=== PATIENT | male | born 1980 | race Caucasian/White ===

== ENCOUNTER 2017-09-27 12:13 | Emergency (ER) | payer OTHER ==
[2017-09-27 12:19] VITALS: RESP 20; O2SAT 100
--- NOTE | 2017-09-27 12:55 | C.PDOC ---
History Of Present Illness 36 y/o male who presents this afternoon complaining of anxiety, palpitations, and chest tightness for three days that have resolved at this time. Patient denies leg pain, swelling, recent travel, shortness of breath, trouble completing routine exercise, or other complaint during the episode. He reports a history of palpitations and anxiety intermittently in the past, however the chest tightness is new for him. Patient has had multiple workups in the past for his complains that include EKG, "blood tests" however he has been advised that these were normal and his maximum heart rate has been 120. He reports one caffeinated beverage per day, and denies other caffeine or stimulant use. Time Seen by Provider: 09/27/17 12:23 Chief Complaint (Nursing): Palpitations History Per: Patient History/Exam Limitations: no limitations Onset/Duration Of Symptoms: Days (3) Current Symptoms Are (Timing): Gone Associated Symptoms: denies: Chest Pain, Dyspnea, Dizziness, Blurred Vision, Focal Weakness, Headache Quality Of Symptoms: Irregular Heart Rate Severity: Moderate Exacerbating Factor(s): Pos: Injestion Of Caffeinated Beverages Recent travel outside of the [place]: No Additional History Per: Patient Past Medical History Vital Signs: Last Vital Signs Temp 98.1 F 09/27/17 12:16 Pulse 103 H 09/27/17 12:16 Resp 20 09/27/17 12:16 BP 131/82 09/27/17 12:16 Pulse Ox 100 09/27/17 14:23 - Medical History PMH: No Chronic Diseases Surgical History: No Surg Hx Family History: States: Unknown Family Hx - Social History Hx Tobacco Use: No Hx Alcohol Use: Yes Hx Substance Use: No - Immunization History Hx Tetanus Toxoid Vaccination: No Hx Influenza Vaccination: No Hx Pneumococcal Vaccination: No Review Of Systems Except As Marked, All Systems Reviewed And Found Negative. Cardiovascular: Positive for: Palpitations, Other (chest tightness) Psych: Positive for: Anxiety Physical Exam - Physical Exam Appears: Well, No Acute Distress Skin: Normal Color, Warm, Dry Eye(s): bilateral: Normal Inspection, PERRL, EOMI Nose: Normal Throat: Normal Neck: Normal Cardiovascular: Rhythm Regular Respiratory: Normal Breath Sounds Gastrointestinal/Abdominal: Normal Exam Back: Normal Inspection Extremity: Normal ROM ED Course And Treatment - Laboratory Results Result Diagrams: 09/27/17 13:26 09/27/17 13:26 ECG: Interpreted By Me, Viewed By Me ECG Rhythm: Sinus Rhythm (rate 100) ECG Interpretation: Normal Interpretation Of ECG: NSR rate 100, normal QRS, QT, and no ST changes O2 Sat by Pulse Oximetry: 100 (RA) Pulse Ox Interpretation: Normal - Radiology CXR: Interpreted by Me, Viewed By Me CXR Interpretation: Yes: No Acute Disease Reevaluation Time: 14:17 Reassessment Condition: Improved (VSS FEELS BETTER. ADVISED FU PMD) Medical Decision Making Medical Decision Making: Impression: Chest tightness, palpitations, anxiety Differential includes but is not limited to: recurrent panic attack v. dysrhythmia of unknown cause and without evidence at this time v. low risk for PE Plan: - Labs - EKG - CXR - Reassessment - Patient offered anti-anxiety medications, however he declined Labs reviewed and were significant for elevated glucose at 120. D-Dimer was negative. Scribe Attestation: Documented by Janice Mcfarlane acting as a scribe Skyla Rush MD. Scribe Attestation: All medical record entries made by the Scribe were at my direction and personally dictated by me. I have reviewed the chart and agree that the record accurately reflects my personal performance of the history, physical exam, medical decision making, and the department course for this patient. I have also personally directed, reviewed, and agree with the discharge instructions and disposition. Disposition Counseled Patient/Family Regarding: Studies Performed, Diagnosis, Need For Followup - Disposition Referrals: YOUR,PMD [Other] Disposition: HOME/ ROUTINE Disposition Time: 14:18 Condition: IMPROVED Instructions: Palpitations (DC) Forms: [employer] ([place]ish) - Clinical Impression Clinical Impression: Palpitations
--- NOTE | 2017-09-27 13:24 | RAD ---
HISTORY: Palpations COMPARISON: No prior. TECHNIQUE: Chest PA and lateral FINDINGS: LUNGS: No active pulmonary disease. PLEURA: No significant pleural effusion identified. No pneumothorax apparent. CARDIOVASCULAR: Normal. OSSEOUS STRUCTURES: No significant abnormalities. VISUALIZED UPPER ABDOMEN: Normal. OTHER FINDINGS: None. IMPRESSION: No active disease. Concordant results with the preliminary interpretation rendered by the emergency department physician procedure.
[2017-09-27 13:37] LABS: BASO % 0.6 % (0.0-2.0); EOS % 0.9 % (0.0-4.0); HEMOGLOBIN 15.7 g/dL (12.0-18.0); LYMPH # 1.5 K/uL (1.0-4.3); LYMPH % 28.9 % (20.0-40.0); MEAN CELL VOLUME 90.4 fL (80.0-94.0); MEAN CORPUSCULAR HEMOGLOBIN 31.4 pg (27.0-31.0); MEAN CORPUSCULAR HGB CONC 34.7 g/dL (33.0-37.0); MEAN PLATELET VOLUME 9.8 fL (7.2-11.7); MONO # 0.3 K/uL (0.0-0.8); MONO % 5.5 % (0.0-10.0); NEUT # 3.3 K/uL (1.8-7.0); NEUT % 64.1 % (50.0-75.0); NRBC % 0.2 % (0.0-2.0); RED CELL DISTRIBUTION WIDTH 13.3 % (11.5-14.5); WHITE BLOOD COUNT 5.2 K/uL (4.8-10.8)
[2017-09-27 13:54] LABS: BLOOD UREA NITROGEN 17 mg/dL (9-20); CALCIUM 10.2 mg/dl (8.6-10.4); GFR AFRICAN-AMERICAN > 60; GFR NON-AFRICAN AMERICAN > 60
[2017-09-27 14:30] VITALS: BP 119/75; PULSE 83; TEMP 97.5
--- NOTE | 2017-09-28 12:08 | CARD ---
APPROVED REPORT EKG Measurement Heart [id number] <Conclusion> Normal sinus rhythm Normal ECG
== END 2017-09-27 14:28 | disposition home or self-care (01) ==
LOC: C.ER 12:13
DX: R00.2 Palpitations (principal)